=== PATIENT | female | born 1995 | race Caucasian/White ===

== ENCOUNTER 2016-05-11 21:19 | Emergency (ER) | payer OTHER ==
[~2016-05-11 21:19] MED LIST: ACETAMINOPHEN PO; ALBUTEROL17 GM INH; AMOXICILLIN PO; AMOXICILLIN875 MG PO; BIRTH CONTROL PILL; FLEXERIL10 MG PO; FLOXIN OTIC5 M1 AD; FLUCONAZOLE150 M1 PO; MOTRIN600 M2 DOB; NAPROSYN500 MG PO; NO MEDICATIONS
[2016-05-11 21:40] LABS: BASOPHIL% 0.2 % (0-2.5); EOSINOPHIL# 0.2 X10e3 (0-0.7); EOSINOPHIL% 0.9 % (0.0-7.0); HEMATOCRIT 49.3 % (35.0-45.0); HEMOGLOBIN 17.2 gm/dL (12.0-16.0); LYMPHOCYTE# 1.6 X10e3 (1.0-3.5); LYMPHOCYTE% 8.8 % (17.0-45.0); MEAN CELL VOLUME 89.9 FL (83-96); MEAN CORPUSCULAR HEMOGLOBIN 31.4 PG (28-34); MEAN PLATELET VOLUME 9.2 FL (6.5-11.5); MONOCYTE% 5.7 % (3.0-12.0); NEUTROPHIL# 15.4 X10e3 (1.5-7.1); NEUTROPHIL% 84.4 % (40-75); PLATELET COUNT 287 X10e3 (140-420); RED BLOOD COUNT 5.48 X10e (3.90-5.30); RED CELL DISTRIBUTION WIDTH 12.8 % (11.0-15.5); WHITE BLOOD COUNT 18.2 X10e3 (4.0-10.5)
[2016-05-11 21:42] LABS: DIFF IND NO
[2016-05-11 21:57] LABS: ALBUMIN SERUM 5.2 g/dL (3.5-5.0); ALKALINE PHOSPHATASE 54 U/L (32-92); ALT (SGPT) 30 U/L (10-40); AST (SGOT) 21 U/L (10-42); BILIRUBIN, DIRECT 0.1 mg/dL (0.0-0.2); BILIRUBIN,INDIRECT 0.9 mg/dL (0.0-0.9); BLOOD UREA NITROGEN 12 mg/dL (9-23); CALCIUM SERUM 9.2 mg/dL (8.4-10.2); CARBON DIOXIDE 26 mmol/L (22-31); CHLORIDE 101 mmol/L (100-111); CREATININE SERUM 0.8 mg/dL (0.6-1.4); GLOM FILT RATE Estimated ABOVE60 mL/min (>60); GLUCOSE FASTING 96 mg/dL (70-110); LIPASE 26 U/L (22-51); POTASSIUM 3.7 mmol/L (3.5-5.1); PROTEIN TOTAL SERUM 8.5 g/dL (6.0-8.3); SODIUM 137 mmol/L (135-145)
[2016-05-11 22:09] LABS: URINE SOURCE CLEAN CATCH
[2016-05-11 22:11] LABS: URINE APPEARANCE CLEAR; URINE BILIRUBIN NEG (NEG); URINE BLOOD 1+ (NEG); URINE COLOR YELLOW; URINE GLUCOSE NEG (NORM); URINE KETONE TRACE (NEG); URINE LEUKOCYTE ESTERASE NEG (NEG); URINE NITRATE NEG (NEG); URINE PH 5.5 (5-8); URINE PROTEIN NEG (NEG); URINE SPECIFIC GRAVITY >=1.030 (1.003-1.035); URINE UROBILINOGEN 0.2 MG/DL (NORM)
[2016-05-11 22:13] LABS: MICRO INDICATED? YES
[2016-05-11 22:15] LABS: URINE WBC 0-2 /[HPF] (0-5)
[2016-05-11 22:16] LABS: CULTURE INDICATED? NO; URINE BACTERIA NEG (NEG); URINE MUCUS PRESENT; URINE SQUAMOUS EPITHELIAL CELL MODERATE /[HPF]
[2016-05-13] MEDS ORDERED: ZOFRAN ODT4 MG SL (23:16)
== END 2016-05-11 22:53 | disposition home or self-care (01) ==
LOC: SED 21:19
PROVIDERS: Physician Assistant
DX: R11.2 Nausea with vomiting, unspecified (principal); F17.210 Nicotine dependence, cigarettes, uncomplicated
CPT/HCPCS: 36415; 80048; 80076; 81003; 83690; 84703; 85025; 96361; 96374; 99284; J2405

== ENCOUNTER 2016-05-13 23:36 | Emergency (ER) | payer OTHER ==
--- NOTE | ~2016-05-13 | CT2 ---
[facility] A Service of [facility] [place] RADIOLOGY TEXT RESULTS PATIENT: AJZ MATTSON LOCATION: SED : [birth year] UNIT #: [id number] AGE: [address]: Dejuan Diaz MD SEX: F ORDER DR: [id number] [address] [address] [id number] MR#: [id number] Acc #: [id number] NAME: JAZ MATTSON : 1995 SEX: F STUDY DATE/TIME: 05/14/2016 0:52 UNIT: SED ROOM: STUDY DESCRIPTION: CT Abd and Pelv W Cont Attending Physician: Dejuan Diaz M.D. Ordering Physician: Dejuan Diaz M.D. Primary Care Physician: No Primary Care Physician MEDICAL IMAGING REPORT This report is preliminary unless electronic signature is present. EXAM CT abdomen and pelvis with contrast. DATE 05/14/2016 HISTORY 20-year-old female with upper abdominal pain and upper back pain with nausea for 4 days. COMPARISON None PROCEDURE 5 mm axial images from the lung bases through the lesser trochanters after intravenous contrast administration. Enteric contrast was not administered. Sagittal and coronal reformatted images were obtained. This CT exam was performed with one or more of the following radiation dose reduction techniques: automatic exposure control, adjustment of mA and/or kV according to patient size, and iterative reconstruction. FINDINGS ABDOMEN FINDINGS: The lung bases are clear. The liver, gallbladder, spleen, pancreas, adrenals, and kidneys are normal. The appendix is normal. A few small bowel loops within the left midabdomen appear thickened with increased wall enhancement suggesting changes of enteritis in the appropriate clinical context. No evidence of high-grade bowel obstruction. The colon appears unremarkable. PELVIS FINDINGS: Uterus, urinary bladder, and rectum are normal. Left ovarian cyst measures 2.1 cm. No pelvic free fluid is identified. [facility] A Service of [facility] [place] RADIOLOGY TEXT RESULTS PATIENT: JAZ MATTSON LOCATION: SED : 93 UNIT #: [id number] AGE: [address]: Dejuan Diaz MD SEX: F ORDER DR: No acute osseous abnormalities are seen. IMPRESSION 1. Left mid abdominal small bowel loops appear mildly thickened and hyperenhancing, suggesting changes of enteritis in the proper clinical context. No evidence of bowel obstruction. 2. The appendix is normal. 3. 2.1 severe left ovarian cyst. Dictated by... Rina Fountain M.D. THIS IS AN ELECTRONICALLY VERIFIED REPORT Rina Fountain M.D. at 05/18/2016 8:37 AM RICK/teddy TD: 05/14/2016 10:02 JOB #: [id number] MEDICAL IMAGING REPORT Page 1 of 1
[~2016-05-13 23:36] MED LIST changes: +ZOFRAN ODT4 MG SL
[2016-05-13 23:58] LABS: BASOPHIL% 0.3 % (0-2.5); EOSINOPHIL# 0.1 X10e3 (0-0.7); EOSINOPHIL% 1.1 % (0.0-7.0); HEMATOCRIT 46.1 % (35.0-45.0); HEMOGLOBIN 15.7 gm/dL (12.0-16.0); LYMPHOCYTE# 1.5 X10e3 (1.0-3.5); LYMPHOCYTE% 12.4 % (17.0-45.0); MEAN CELL VOLUME 90.2 FL (83-96); MEAN CORPUSCULAR HEMOGLOBIN 30.8 PG (28-34); MEAN CORPUSCULAR HGB CONC 34.1 g/dL (30-36); MEAN PLATELET VOLUME 9.3 FL (6.5-11.5); MONOCYTE# 0.7 X10e3 (0-1.0); NEUTROPHIL% 80.2 % (40-75); PLATELET COUNT 255 X10e3 (140-420); RED BLOOD COUNT 5.11 X10e (3.90-5.30); RED CELL DISTRIBUTION WIDTH 12.8 % (11.0-15.5); WHITE BLOOD COUNT 12.5 X10e3 (4.0-10.5)
[2016-05-13 23:59] LABS: DIFF IND NO
[2016-05-14 00:14] LABS: ALBUMIN SERUM 4.1 g/dL (3.5-5.0); ALKALINE PHOSPHATASE 52 U/L (32-92); ALT (SGPT) 75 U/L (10-40); AMYLASE 12 U/L (0-46); AST (SGOT) 62 U/L (10-42); BILIRUBIN,TOTAL 0.5 mg/dL (0.2-2.0); BLOOD UREA NITROGEN 12 mg/dL (9-23); BUN/CREATININE RATIO 17.14; CALCIUM SERUM 8.6 mg/dL (8.4-10.2); CARBON DIOXIDE 25 mmol/L (22-31); CHLORIDE 103 mmol/L (100-111); CREATININE SERUM 0.7 mg/dL (0.6-1.4); GLOM FILT RATE Estimated ABOVE60 mL/min (>60); GLUCOSE FASTING 99 mg/dL (70-110); LIPASE 25 U/L (22-51); POTASSIUM 3.6 mmol/L (3.5-5.1); PROTEIN TOTAL SERUM 7.3 g/dL (6.0-8.3); SODIUM 135 mmol/L (135-145)
[2016-05-14 00:15] LABS: BILIRUBIN, DIRECT <0.1 mg/dL (0.0-0.2); BILIRUBIN,INDIRECT 0.4 mg/dL (0.0-0.9)
[2016-05-14 00:34] LABS: URINE SOURCE CLEAN CATCH
[2016-05-14 00:44] LABS: URINE APPEARANCE CLEAR; URINE BILIRUBIN NEG (NEG); URINE BLOOD 2+ (NEG); URINE COLOR YELLOW; URINE GLUCOSE NEG (NORM); URINE KETONE NEG (NEG); URINE LEUKOCYTE ESTERASE TRACE (NEG); URINE NITRATE NEG (NEG); URINE PROTEIN NEG (NEG); URINE SPECIFIC GRAVITY 1.025 (1.003-1.035); URINE UROBILINOGEN 0.2 MG/DL (NORM)
[2016-05-14 00:46] LABS: MICRO INDICATED? YES
[2016-05-14 00:50] LABS: CULTURE INDICATED? YES; URINE BACTERIA NEG (NEG); URINE SQUAMOUS EPITHELIAL CELL MODERATE /[HPF]
[2016-05-14 00:51] LABS: URINE MUCUS PRESENT
== END 2016-05-14 01:26 | disposition home or self-care (01) ==
LOC: SED 23:36
PROVIDERS: Emergency Medicine
DX: R10.9 Unspecified abdominal pain (principal); F17.210 Nicotine dependence, cigarettes, uncomplicated; Z79.899 Other long term (current) drug therapy
CPT/HCPCS: 36415; 74177; 80048; 80076; 81003; 82150; 83690; 84703; 85025; 87086; 96361; 96374; 96375; 99284; J2405; Q9967

== ENCOUNTER 2016-09-21 13:20 | Emergency (ER) | payer OTHER ==
[2016-09-21] MEDS ORDERED: VITAMIN D400 UNI2 (13:27)
[2016-09-21] MEDS ORDERED: PRENATAL ONE T1 EACH PO (13:27)
[2016-09-21] MEDS ORDERED: METFORMIN PO (13:27)
== END 2016-09-21 14:09 | disposition home or self-care (01) ==
LOC: SED 13:20
DX: H60.332 Swimmer's ear, left ear (principal); F17.210 Nicotine dependence, cigarettes, uncomplicated
CPT/HCPCS: 99282